=== PATIENT | male | born 1985 | race Caucasian/White ===

== ENCOUNTER 2022-04-27 12:09 | Emergency (ER) | payer OTHER, SELFPAY ==
[2022-04-27 13:35] VITALS: BP 157/91; PULSE 95; RESP 20; TEMP 36.4; O2SAT 97; BMI 39.4
--- NOTE | 2022-04-27 13:37 | ED_ITS ---
HPI - General Adult General Chief complaint: General Medical Stated complaint: Needs ADHD medication refill Time Seen by Provider: 04/27/22 13:46 Source: patient Mode of arrival: ambulatory Limitations: no limitations History of Present Illness HPI narrative: 37 yold male presents to the ED for medication refill of aderral and klonopin. patient states he is between medical providers and appointment with new provider is in May. patient states no physical complaints Related Data Previous Rx's Medication Instructions Recorded clonazepam 0.5 mg tablet (Klonopin) 0.5 mg PO BID 3 days #6 tabs 04/27/22 dextroamphetamine-amphetamine ER 15 mg PO QAM 7 days #7 caps 04/27/22 15 mg 24hr capsule,extend release (Adderall XR) Allergies Allergy/AdvReac Type Severity Reaction Status Date / Time No Known Allergies Allergy Unverified 01/18/20 15:38 Review of Systems Review of Systems: medication refill Yes all other systems are reviewed and are negative [facility] Social History Social History Advance Directives: No Advance Directives Information Provided: No Physical Exam ED Vital Signs: Vital Signs - 24 hr 04/27/22 13:35 Temperature 97.6 F Pulse Rate 95 Respiratory Rate 20 Blood Pressure 157/91 H Pulse Oximetry 97 Oxygen Delivery Method Room Air BMI result Body Mass Index 39.4 Const General: cooperative, healthy appearing, comfortable, no acute distress, well developed, alert and awake Orientation/consciousness: oriented to person, oriented to place, oriented to time and patient oriented x3 HENMT Head: Yes normal to inspection, Yes No palpable skull fracture present, Yes normocephalic, Yes atraumatic and No abrasion Ears: hearing grossly normal bilaterally, external ears normal, EAC's normal, mastoids normal and no periauricular adenopathy Throat: Yes posterior oropharynx normal and Yes tonsils normal Eyes General: appearance normal, both eyes and all related structures Neck Neck: Yes normal visual inspection, Yes full ROM, Yes no lymphadenopathy, Yes no meningeal signs, Yes trachea midline, Yes supple, No anterior neck swelling and No tender Chest Chest palpation & inspection: normal inspection of the chest and normal palpation of entire chest wall Resp Effort & Inspection: normal respiratory effort and able to speak in complete sentences Auscultation: clear to auscultation bilaterally Cardio Jugular venous distension: no JVD Heart sounds: S1 normal heart sound present and S2 normal heart sound present GI Inspection: Yes normal to inspection and No abdominal wall ecchymosis Palpation (GI): Soft to palpation, not firm, nontender, no guarding and not rigid General: No CVA tenderness and Yes no CVA tenderness Back/Spine/Pelvis Back: no CVA tenderness, No CVA tenderness and No back tenderness Skin General skin exam: no rashes or lesions noted and elasticity normal Neuro General: oriented to person, oriented to place, oriented to time, patient oriented x3, gait normal, tone normal, moves all extremities, Normal light touch and pain sensation, no meningeal signs, no focal motor deficits and CN's II-XI intact bilaterally Extrem General: Yes normal to inspection and Yes full ROM Psych Appearance: grossly normal, well kempt and not disheveled Course Course Course Narrative: RME: 37 yold male reqeusting medication refill for clonzepam 1mg BID and aderal 15XR bid. Patient states his provdier retired and has been appointment with new appointment in may. Reevaluation(s) Reevaluation #1: WIll start patinet on lower dose of clonzepam and short course. patient refilled with aderal and clonzepam. As per pharmacy patient last picked them up in october. Alderral will be presribed as every morning and not BiD. Time: 01:40 Discharge Plan Discharge Clinical Impression: Medication refill Patient Disposition: Home, Self-Care Instructions: Medicine Refill (ED) Additional Instructions: Return to the ED for any suicidal/homicidal ideation, auditory/visual hallucinations, any physical complaints, any other concerning symptoms. Please follow-up with primary care provider. Prescriptions: New dextroamphetamine-amphetamine [Adderall XR] 15 mg capsule,extended release 24hr 15 mg PO QAM 7 Days Qty: 7 0RF Rx Instructions: Partial Fill upon patient request. clonazepam [Klonopin] 0.5 mg tablet 0.5 mg PO BID 3 Days Qty: 6 0RF Interventions: ED Discharge Assessment Last Done: 04/27/22 13:48 Discharge Date/Time: 04/27/22 13:48 Print Language: Estonian
== END 2022-04-27 13:48 | disposition home or self-care (01) ==
PROVIDERS: Emergency Provider Emergency Medicine
DX: Z76.0 Encounter for issue of repeat prescription (principal); F90.9 Attention-deficit hyperactivity disorder, unspecified type
CPT/HCPCS: 99282